=== PATIENT | male | born 1995 | race Caucasian/White ===

== ENCOUNTER 2018-08-11 23:33 | Emergency (ER) | payer OTHER ==
--- NOTE | 2018-08-12 00:02 | EDPHY ---
H & P Stated Complaint: fall, hit table, R eyebrow lac Source: Patient, Family Exam Limitations: Intoxication - Personal History Current Tetanus Diphtheria and Acellular Pertussis (TDAP): Yes - Medical/Surgical History Hx Asthma: No Hx Chronic Respiratory Disease: No Hx Diabetes: No Hx Cardiac Disease: No Hx Renal Disease: No Hx Cirrhosis: No Hx Alcoholism: No Hx HIV/AIDS: No Hx Splenectomy or Spleen Trauma: No Other PMH: Denies - Social History Smoking Status: Never smoked Time Seen by Provider: 08/11/18 23:53 HPI/ROS: HPI: This is a 23-year-old male who presents with Chief Complaint: fall, hit table, R eyebrow lac Location: Right eyebrow Quality: Laceration Duration: 45 min prior to arrival Signs and Symptoms: + bleeding, no radiation, no numbness, no weakness, no tingling, no incontinence, no decreased range of motion, no swelling, + pain, no fever Timing: Acute Severity: Moderate Context: Patient is a student at [employer], admits to been drinking alcohol this evening, presents accompanied by 1 of his fraternity brothers, with complaints of accidentally tripping and falling and hitting his right eyebrow on the wooden coffee table. Denies LOC/neck pain/dizziness/nausea /vomiting/amnesia. He reports that he was ambulatory at the scene. Noted bleeding from his right eyebrow and applied direct pressure. Reports tetanus is current. No history of prior concussions. Not on any blood thinners. Modifying Factors: Direct pressure Comment: ROS: A comprehensive 10 system review of systems is otherwise negative aside from elements mentioned in the history of present illness. MEDICAL/SURGICAL/SOCIAL HISTORY: Medical history: Generally healthy. Does not take any regular medications. Surgical history: Denies Social history: Student at [employer]. Admits to alcohol and marijuana use. CONSTITUTIONAL: Polite and cooperative, intoxicated, young adult white male, awake and alert, no obvious distress HEENT: 7 cm, linear, deep laceration above right eyebrow-no active bleeding and normocephalic, PERRL, EOMI. no globe entrapment, no raccoon eyes. no Garcia signs.Tympanic membranes clear. No tympanic membrane rupture. Nares patent; no septal hematoma. Oropharynx clear, no exudate and moist pink mucosa. No malocclusion. no dental trauma. Airway patent. No lymphadenopathy. NECK: supple, no midline tenderness, flexion 45 degrees, extension 45 degrees, right and left lateral flexion 45 degrees. No meningismus. Cardiovascular: Normal S1/S2, tachycardia, regular rhythm, without murmur rub or gallop. PULMONARY/CHEST: Symmetrical and nontender. no crepitus. Clear to auscultation bilaterally. Good air movement. No accessory muscle usage. ABDOMEN: Soft, nondistended, nontender, no ecchymosis, no rebound, no guarding , no peritoneal signs, no masses or organomegaly. No CVAT. PELVIC: no pain with rocking; bilateral hips flexion 125 degrees, extension 30 degrees, with no pain internal rotation and no pain external rotation. BACK: No midline tenderness, no paraspinous spasm, deep tendon reflexes 2/2, no pain with straight leg raise EXTREMITIES: 2/2 pulses, no deformities, no clubbing, no cyanosis or edema. NEUROLOGICAL: no focal neuro deficits. GCS 15. Speech slightly slurred. SKIN: Warm and dry, no erythema. no rash. Good capillary refill. (Flaco,Terra ) Constitutional: Initial Vital Signs Temperature (C) 36.8 C 08/11/18 23:34 Heart Rate 128 H 08/11/18 23:34 Respiratory Rate 17 08/11/18 23:34 Blood Pressure 137/96 H 08/11/18 23:34 O2 Sat (%) 94 08/11/18 23:34 O2 Delivery Mode Room Air Allergies/Adverse Reactions: No Known Allergies Allergy (Unverified 08/11/18 23:38) Home Medications: Medication Instructions Recorded NK [No Known Home Meds] 08/11/18 Medical Decision Making Procedures: Procedure: Laceration repair. Verbal consent was obtained from the patient. The 7 cm, deep, complex laceration on the right eyebrow/forehead was anesthetized in the usual fashion using 10 mL of 1% lidocaine with epinephrine. The wound was irrigated, draped and explored to its base with a gloved finger. There were no deep structures involved. No tendon injury was identified. The wound was repaired with 2 layer closure; #4; 4-0 Vicryl in vertical buried pattern and #10, 5-0 Prolene subcutaneous in simple interrupted pattern. Good hemostasis was achieved and patient tolerated procedure well. Steri-Strips applied. The procedure was performed by myself. (Manju Sam) ED Course/Re-evaluation: Vital signs reviewed and show mild tachycardia. Tetanus is up-to-date. Local anesthesia provided and copiously irrigated Laceration closed with 2 layer closure Steri-Strips applied Verbal and written wound care instructions provided Based on nexus protocol, head CT imaging not indicated No signs of neurovascular compromise/tenting of skin/compartment syndrome/ extremities and joints examined above and below area of concern and are neurovascularly intact. This patient was seen under the supervision of my secondary supervising physician. I evaluated and cared for this patient independently. (Manju Sam) PHYSICIAN DOCUMENTATION: The patient was evaluated and managed by the Physician Medical Technical Writer. My co- signature indicates that I have reviewed this chart and I agree with the findings and plan of care as documented. I am the secondary supervising physician. (Sosa Carver) Differential Diagnosis: Head injury including but not limited to concussion, skull fracture, intraparenchymal contusion, subarachnoid, subdural and epidural hematoma. (Manju Sam) Departure - Departure Disposition: Home, Routine, Self-Care Clinical Impression: Laceration of right eyebrow without complication Qualifiers: Encounter type: initial encounter Qualified Code(s): S01.111A - Laceration without foreign body of right eyelid and periocular area, initial encounter Alcohol intoxication Qualifiers: Complication of substance-induced condition: uncomplicated Qualified Code(s): F10.920 - Alcohol use, unspecified with intoxication, uncomplicated Condition: Good Instructions: Care For Your Stitches (ED), Head Injury (ED), Facial Laceration (ED) Additional Instructions: Allow Steri-Strips to fall off on their own. Do not get the area wet for 48 hr. Do not soak in a bathtub or go swimming until sutures are removed. After 48 hr he may take a shower, pat the area dry. Take Tylenol 650 mg every 4 hours and/or Ibuprofen 600 mg every 8 hours with food as needed for pain. Wound Care Follow-Up: Removal of sutures in [ 7 ] days. Suture removal is complimentary in uncomplicated cases. Infection or abnormal findings would require reevaluation by the MD. In that case, you may be billed. You sustained a closed head injury and it is recommended that you observe concussion precautions. Please do not participate in any contact sports or moderate and strenuous activity until all symptoms have resolved or cleared by PCP/Concussion Clinic. Take Tylenol 650 mg every 4 hours and/or Ibuprofen 600 mg every 8 hours with food as needed for pain/headache. Consume a minimum of 8-10 glasses of water or electrolyte fluid replacement drinks that include Gatorade, Powerade, Pedialyte. You are to be closely monitored and observed for the 12 hr following initial injury time. Please follow-up with [facility] in 5-7 days. If symptoms last longer than 1 week, please follow-up with Dr. Alvarez in the concussion Clinic. Return to the ER immediately if you have progressive headaches, neurologic deficits, gait abnormality, visual disturbance, slurred speech, or any other symptom that concerns you. Referrals: Tawana Alvarez MD [Medical Doctor] - As per Instructions
[2018-08-12 01:03] VITALS: BP 120/70
== END 2018-08-12 01:03 | disposition home or self-care (01) ==
PROC: 08QNXZZ Repair Right Upper Eyelid, External Approach (ICD-10-PCS; principal; 2018-08-11)
DX: S01.111A Laceration without foreign body of right eyelid and periocular area, initial encounter (principal); F10.920 Alcohol use, unspecified with intoxication, uncomplicated; W01.190A Fall on same level from slipping, tripping and stumbling with subsequent striking against furniture, initial encounter; Y92.009 Unspecified place in unspecified non-institutional (private) residence as the place of occurrence of the external cause